=== PATIENT | male | born 1960 | race Caucasian/White ===

== ENCOUNTER → 2024-04-15 12:29 | Outpatient (REF) | payer OTHER, SELFPAY | LOC: RAD 12:29 | PROVIDERS: ATTENDING PHYSICIAN Family Medicine | DX: R06.09 Other forms of dyspnea (principal) | CPT/HCPCS: 71046 ==

== ENCOUNTER 2024-04-20 10:51 | Outpatient (RCR) | payer OTHER, SELFPAY | END 2024-04-20 23:59 | disposition home or self-care (01) | LOC: RST 10:51 | PROVIDERS: ATTENDING PHYSICIAN Family Medicine | DX: R47.1 Dysarthria and anarthria (principal) | CPT/HCPCS: 92522 ==

== ENCOUNTER → 2025-06-07 13:01 | Outpatient (REF) | payer OTHER, SELFPAY | LOC: RAD 13:01 | PROVIDERS: ATTENDING PHYSICIAN Family Medicine | DX: R42 Dizziness and giddiness (principal); I65.23 Occlusion and stenosis of bilateral carotid arteries | CPT/HCPCS: 93880 ==